=== PATIENT | male | born 1990 | race Two or more races ===

== ENCOUNTER 2017-07-31 15:31 | Emergency (ER) | payer MEDICAID ==
[~2017-07-31] VITALS: Ht 157.5 cm; Wt 89.0 kg
[2017-07-31 15:37] VITALS: Ht 157.5 cm; Wt 89.0 kg
--- NOTE | 2017-07-31 17:44 | ERD ---
ER Documentation Chief Complaint Chief Complaint CWP SINCE LAST NIGHT HPI This is a 27-year-old male who presents to the emergency department today for right-sided chest wall pain that has been intermittent since last night. Patient states he has not taken any medication for the pain. States that he quit smoking 3 weeks ago. States he has some pain along his scapula. Denies any foreign travel, vomiting or diarrhea. Denies any shortness of breath. ROS All systems reviewed and are negative except as per history of present illness. Medications Home Meds Active Scripts Acetaminophen* (Tylophen*) 500 Mg Capsule, 1 CAP PO Q6H Y for PAIN AND OR ELEVATED TEMP, #30 CAP Prov:DAVE OSULLIVAN PA-C 07/31/17 Naproxen* (Naprosyn*) 500 Mg Tablet, 500 MG PO BID Y for PAIN AND/OR INFLAMMATION, #30 TAB Prov:DAVE OSULLIVAN PA-C 07/31/17 PMhx/Soc Medical and Surgical Hx: pt denies Medical Hx, pt denies Surgical Hx Hx Alcohol Use: No Hx Substance Use: No Hx Tobacco Use: No Physical Exam Vitals Vital Signs Date Time Temp Pulse Resp B/P Pulse Ox O2 Delivery O2 Flow Rate FiO2 07/31/17 15:37 98.1 104 18 160/90 99 Physical Exam Const: NAD Head: Atraumatic Eyes: Normal Conjunctiva ENT: Normal External Ears, Nose and Mouth. Neck: Full range of motion..~ No meningismus. Resp: Clear to auscultation bilaterally. Tenderness to palpation right side of chest wall. Cardio: Regular rate and rhythm, no murmurs Abd: Soft, non tender, non distended. Normal bowel sounds Skin: No petechiae or rashes Back: No midline or flank tenderness Ext: No cyanosis, or edema Neur: Awake and alert Psych: Normal Mood and Affect Results 24 hrs Current Medications Medications (Trade) Dose Ordered Sig/Mina Route PRN Reason Start Time Stop Time Status Last Admin Dose Admin Ibuprofen (Motrin) 800 mg ONCE ONCE PO 07/31/17 18:00 07/31/17 18:01 DC 07/31/17 18:04 DIAGNOSTIC IMAGING REPORT Patient: SHEILA GILBERT : 1990 Age: 27 Sex: M MR #: [id number] DOS: 07/31/17 0000 Ordering MD: DAVE OSULLIVAN PA-C Location: [facility] Room/Bed: PROCEDURE: X-ray Chest. CLINICAL INDICATION: Chest pain. TECHNIQUE: Single view chest x-ray. COMPARISON: None available. FINDINGS: The cardiomediastinal silhouette is within normal limits. The lungs are clear without focal consolidation, effusion, or pneumothorax. There are no acute osseous abnormalities. IMPRESSION: 1. No acute cardiopulmonary abnormality. RPTAT: HLBP .Berry Sanchez MD, MD Date Time Electronically viewed and signed by .Berry Sanchez MD, MD on 07/31/2017 18:19 .P/ CC: DAVE OSULLIVAN PA-C Procedures/MDM This a 27-year-old male who presents the emergency department today complaining of right-sided chest wall pain that is been intermittent since last night. Patient only quit smoking 3 weeks ago. Patient is afebrile and otherwise well- appearing. His mildly tachycardic at 104 at intake and his oxygen saturation 99 %. I did obtain an EKG and chest x-ray given patient's complaints EKG read and interpreted by Dr. Go rate [address] elevation. No QT prolongation Chest x-ray shows no acute cardiopulmonary abnormality. Lungs are clear without focal consolidation, effusion or pneumothorax. Patient has right-sided chest wall pain of uncertain etiology however may be related to costochondritis. I have low suspicion for acute coronary syndrome, PE, abscess, pleural effusion or pneumothorax. I do not feel the patient requires further workup or imaging at this time. Given Motrin here in the emergency department. He will be given a prescription for Naprosyn and Tylenol for home. At this time the patient is stable for discharge and outpatient management. Patient should follow up with their PCP in the next 1-2 days. They may return to the emergency department sooner for any persistent or worsening of symptoms. Patient understood and agreed with the plan. Discussed the patient with Dr. Go and he is in agreement with the plan. Departure Diagnosis: Primary Impression: Chest wall pain Condition: Fair DAVE OSULLIVAN PA-C Jul 31, 2017 17:43
[2017-07-31] MEDS ORDERED: IBUPROFEN 800 MG TAB PO ONE (18:00)
--- NOTE | 2017-07-31 18:19 | RADRPT ---
PROCEDURE: X-ray Chest. CLINICAL INDICATION: Chest pain. TECHNIQUE: Single view chest x-ray. COMPARISON: None available. FINDINGS: The cardiomediastinal silhouette is within normal limits. The lungs are clear without f ocal consolidation, effusion, or pneumothorax. There are no acute osseous abnormalities. IMPRESSION: 1. No acute cardiopulmonary abnormality. RPTAT: HLBP .Berry Sanchez MD, MD Date Time Electronically viewed and signed by .Berry Sanchez MD, on 07/31/2017 18:19 .P/
[2017-07-31] MEDS ORDERED: NAPR-260 PO (18:36)
[2017-07-31] MEDS ORDERED: ACET500C5 PO (18:36)
[2017-07-31 19:15] VITALS: BP 145/87; PULSE 66; RESP 18; TEMP 98.1
== END 2017-07-31 19:15 | disposition home or self-care (01) ==
LOC: FTE 15:31
DX: R07.89 Other chest pain (principal)
CPT/HCPCS: 71010; 93005; Z7502; Z7610

== ENCOUNTER 2018-07-10 11:21 | Emergency (ER) | END 2018-07-10 14:09 | disposition home or self-care (01) ==